=== PATIENT | male | born 1990 | race Caucasian/White ===

== ENCOUNTER 2020-12-30 15:08 | Emergency (ER) | payer OTHER, SELFPAY ==
--- NOTE | ~2020-12-30 | XR_ITS ---
EXAMINATION: XR foot RT min 3V DATE: 12/30/2020 15:28 INDICATION: Right foot injury. TECHNIQUE: 4 views of right foot were obtained. COMPARISON: None. FINDINGS: Bone alignment is normal. There is a nondisplaced extra-articular oblique fracture of third distal phalanx. There is mild osteoarthritis of first metatarsophalangeal joint. IMPRESSION: 1. Nondisplaced extra-articular oblique fracture of third distal phalanx. Reviewed, dictated and finalized at location A.
[2020-12-30 15:21] VITALS: BP 127/80; PULSE 97; RESP 16; TEMP 36.6; O2SAT 97
--- NOTE | 2020-12-30 15:35 | ED.LOWEXIN ---
HPI - Extremity Injury (Lower) General Chief Complaint: Extremity Injury, Lower Stated Complaint: injured foot Time Seen by Provider: 12/30/20 15:11 Source: patient and RN notes reviewed Limitations: no limitations History of Present Illness HPI Narrative: The patient, previously mostly healthy, presents with right foot pain. Patient states he was at work when he dropped a heavy furnishing/cabinet up on his right foot. He complains of mild to moderate pain is worse with motion, better at rest especially at the middle toes. No significant deformity, bleeding but there is some swelling. Related Data Allergies Allergy/AdvReac Type Severity Reaction Status Date / Time cefaclor Allergy Unknown Hives / Verified 08/31/17 22:40 Red Face Review of Systems Review of Systems: General/Constitutional: No weight loss,fever Eyes: N0: Redness,discharge Ears/Nose/Throat: No: Epistaxis,ear discharge Respiratory: Denies: Hemoptysis Gastrointestinal: No Vomiting, Bleeding-rectal Skin: No Lumps, eruption Neurologic: No Focal Weakness,Sz Hematologic: Denies: Petechiae/Purpura Psychiatric: No: Suicida ideationl All Other Systems: Reviewed and Negative PMFSH Comments At time of signature, agree with nursing past medical, surgical, social and family history. There is no relevant family history pertinent to the presenting complaint Exam Narrative: General Appearance: Well appearing, conjunctiva clear Mouth/Throat: Normal appearing, Normal lips,Neck: Supple Respiratory: Airway patent, No respiratory distress MS-foot: Nl strength (mostly intact, limited flexion/extension by pain), Tenderness (distal toe tips, with mild decreased ROM), Swelling distal phalanges), Other (no anterior drawer, Skin: Warm, Dry, Normal color Neurological: A&O x3, Speech clear, CN II-XII intact Psychiatric: Normal mood, Normal affect Course Course Emergency Course: Films visualized, interpreted by radiologist, agree, abnormal see report Vital Signs Vital signs: Vital Signs Temperature 98 F 12/30/20 15:21 Pulse Rate 97 12/30/20 15:21 Respiratory Rate 16 12/30/20 15:21 Blood Pressure 127/80 12/30/20 15:21 Pulse Oximetry 97 12/30/20 15:21 Temperature 98 F 12/30/20 15:21 Pulse Rate 97 12/30/20 15:21 Respiratory Rate 16 10/12/21 15:21 Blood Pressure 127/80 12/30/20 15:21 Pulse Oximetry 97 12/30/20 15:21 Discharge Plan Discharge Clinical Impression: Fracture, toe Qualifiers: Encounter type: initial encounter Toe: lesser toe Fracture type: closed Phalanx: distal Fracture alignment: nondisplaced Laterality: right Qualified Code(s): S92.534A - Nondisplaced fracture of distal phalanx of right lesser toe(s), initial encounter for closed fracture Patient Disposition: Home, Self-Care Condition: Improved Instructions: Toe Fracture (ED) Additional Instructions: Per instruction sheet: Wear stiffer, flat shoes; and/or lavonne tape toes See podiatry worsens or not improved Prescriptions: New tramadol 50 mg tablet 50 - 75 mg PO Q6H PRN (Reason: pain) Qty: 30 RF: 0 Follow-up/Referrals: Jerome,Kailee Lam APRN [Primary Care Provider] -
== END 2020-12-30 15:53 | disposition home or self-care (01) ==
PROVIDERS: Emergency Provider Emergency Medicine; PCP Nurse Practitioner Family
DX: S92.534A Nondisplaced fracture of distal phalanx of right lesser toe(s), initial encounter for closed fracture (principal); W20.8XXA Other cause of strike by thrown, projected or falling object, initial encounter; Y99.0 Civilian activity done for income or pay
CPT/HCPCS: 73630; 99203; G0463

== ENCOUNTER 2022-01-18 09:32 | Emergency (ER) | payer OTHER, SELFPAY ==
--- NOTE | 2022-01-18 09:36 | ED.URI ---
HPI - URI/Sore Throat General Chief Complaint: Upper Respiratory Infection Stated Complaint: sore throat, fatigue, cough, runny nose Time Seen by Provider: 01/18/22 10:06 Source: patient and RN notes reviewed Mode of arrival: ambulatory Limitations: no limitations History of Present Illness HPI Narrative: 31-year-old male presents concern for sore throat that started yesterday. He reports rhinorrhea, fatigue. He does not take any npya-gyh-teljoct medications for his symptoms. He denies cough, fever, chills, sweats. Reports mild body aches. MD elicited complaint: sore throat Related Data Allergies Allergy/AdvReac Type Severity Reaction Status Date / Time cefaclor Allergy Unknown Hives / Verified 08/31/17 22:40 Red Face Review of Systems Review of Systems: CONSTITUTIONAL: Denies malaise, chills, sweats, or fever. Reports fatigue EYES: Denies visual changes, redness, or discharge. ENT: Reports rhinorrhea and sore throat. Denies congestion, sinus pain, otalgia CARDIOVASCULAR: Denies chest pain, palpitations, or edema. RESPIRATORY: Denies cough. Denies dyspnea. GASTROINTESTINAL: Denies abdominal pain, nausea, vomiting, diarrhea SKIN: Denies rash or itching. MUSCULOSKELETAL: Reports myalgia. NEUROLOGIC: Denies headache. All systems reviewed & are unremarkable except as noted in HPI and below PMFSH Comments At time of signature, agree with nursing past medical, surgical, social and family history. There is no relevant family history pertinent to the presenting complaint Exam Narrative: GENERAL: Well-appearing, well-nourished, and in no acute distress. HEAD: Normocephalic EYES: PERRLA, conjunctivae clear ENT: Nares clear, clear discharge. Mucous membranes moist. TM pearly sal with sharp light reflex bilaterally; no tragal tenderness. Oropharynx not erythematous without lesions. Tonsils not enlarged and without exudate, no drooling, no hoarseness, no trismus, uvula midline. NECK: Supple. No lymphadenopathy CHEST: Clear to auscultation, breath sounds equal. No wheezing, rhonchi, rales, or stridor. No respiratory distress, speaks in full sentences. HEART: Regular rate and rhythm. No murmur heard. SKIN: Warm, dry, no rash. NEURO: Alert and oriented x3. PSYCH: Normal mood and affect Course Course Emergency Course: Patient is aware of diagnosis, understands and agrees to treatment plan. Anticipatory guidance given. Patient agrees to follow-up as directed and is aware of reasons to seek care at the emergency department. Portions of this record may have been created with voice recognition software Level of Care: Express Care Visit Vital Signs Vital signs: Reviewed. MDM - URI/Sore Throat MDM Narrative Medical decision making narrative: Differential diagnosis considered: Forte virus, strep pharyngitis, allergic rhinitis, upper respiratory tract infection, sinusitis, rhinosinusitis, nasopharyngitis. viral pharyngitis, otitis media, otitis externa, pneumonia, bronchitis, viral cough syndrome, viral syndrome, and influenza. Exam findings show no acute concerns or changes; patient is non-toxic appearing and is in no distress. Patient is appropriate for outpatient treatment and follow-up. Lab Data Attestation: I reviewed the patient's lab results. Critical Care Time Critical Care Time Critical Care Time: No Discharge Plan Discharge Clinical Impression: Upper respiratory infection Patient Disposition: Home, Self-Care Condition: Stable Instructions: Upper Respiratory Infection (ED) Additional Instructions: Your influenza tests are negative Your rapid strep swab was negative today at [facility]. A throat culture will be sent to the laboratory for further testing. If the test is positive, you will receive a phone call within 48 hours and an appropriate antibiotic will be initiated at that time. Your symptoms are likely due to a viral illness, which is not treated with antibiotics. Viral symptoms can be pr
[2022-01-18 09:38] VITALS: BP 130/93; PULSE 99; RESP 16; TEMP 36.7; O2SAT 100
== END 2022-01-18 10:14 | disposition home or self-care (01) ==
PROVIDERS: Emergency Provider Nurse Practitioner
DX: J06.9 Acute upper respiratory infection, unspecified (principal)
CPT/HCPCS: 87081; 87804; 87880; 99213; G0463

== ENCOUNTER 2022-03-03 11:29 | Emergency (ER) | payer OTHER, SELFPAY ==
--- NOTE | 2022-03-03 11:31 | ED.URI ---
HPI - URI/Sore Throat General Chief Complaint: Upper Respiratory Infection Stated Complaint: fever, bodyaches, chills,congestion Time Seen by Provider: 03/03/22 11:31 Source: patient Mode of arrival: ambulatory Limitations: no limitations History of Present Illness HPI Narrative: Mr. Pierce is a 31-year-old male patient presenting to the clinic today with complaints of fever, body aches, chills, and nasal congestion since 4:00 a.m. this morning. 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 MD elicited complaint: fever, nasal congestion and other (Body aches and chills) Related Data Home Medications Medication Instructions Recorded Confirmed diclofenac sodium 75 mg 75 mg PO DAILY 03/03/22 03/03/22 tablet,delayed release Allergies Allergy/AdvReac Type Severity Reaction Status Date / Time cefaclor Allergy Unknown Hives / Verified 03/03/22 11:39 Red Face Review of Systems Review of Systems: Pertinent positives per HPI. Patient denies any rash, headache, visual changes, dizziness, cough, shortness of breath, chest pain, palpitations, nausea, vomiting, diarrhea, constipation, abdominal pain, or any urinary issues. PMFSH Comments At the time of my signature, I reviewed and agree with the nursing past medical, surgical, social, and family history. There is no relevant family history pertinent to the patient complaint. Exam Narrative: General: Well-developed, well nourished, in no apparent distress Head: Normocephalic, atraumatic Eyes: Pupils equally round and reactive to light bilaterally, EOM intact, sclera and conjunctive clear, no discharge, lids normal Ears: TMs intact and dull, ear canals clear, no drainage, grossly hearing normal. Nose: Nares patent, clear nasal discharge, no inflammation, no sinus tenderness. Mouth: Oral pharynx without lesions or masses, good dentition, MMM. Postnasal drip Neck: Supple, trachea midline, no enlargement of anterior or posterior cervical nodes, no thyroid masses or goiter palpable. Cardio: Regular rate and rhythm, s1 and s2 normal, no murmur appreciated. Resp: Clear to auscultation bilaterally, no rhonchi, rales, wheezing or rubs Course Course Emergency Course: Portions of this record may have been created with voice recognition software. Level of Care: Express Care Visit Vital Signs Vital signs: Vital Signs Temperature 37.9 C H 03/03/22 11:33 Pulse Rate 117 H 03/03/22 11:33 Respiratory Rate 18 03/03/22 11:33 Blood Pressure 135/94 H 03/03/22 11:33 Pulse Oximetry 99 03/03/22 11:33 Oxygen Delivery Room Air 03/03/22 11:33 Temperature 37.9 C H 03/03/22 11:33 Pulse Rate 117 H 03/03/22 11:33 Respiratory Rate 18 03/03/22 11:33 Blood Pressure 135/94 H 03/03/22 11:33 Pulse Oximetry 99 03/03/22 11:33 Oxygen Delivery Room Air 03/03/22 11:33 Vital signs reviewed MDM - URI/Sore Throat MDM Narrative Medical decision making narrative: At the time of visit patient is resting comfortably on the exam table. Influenza and COVID testing were performed in the clinic. Influenza testing was negative however COVID testing was positive. Prescription for mulnipiviar was sent to pharmacy. Supportive measures were discussed with the patient he voiced understanding discharge instructions and agrees to treatment plan. Differential Diagnosis Differential diagnosis: Likely upper respiratory infection, otitis media, sinusitis, viral infection, bronchitis, influenza, pharyngitis and other (COVID) Lab Data Labs: Lab Results 03/03/22 Range/Units 11:45 POC SARS CoV-2 Ag Positive (Negative) Discharge Plan Discharge Clinical Impression: COVID-19 Patient Disposition: Home, Self-Care Condition: Stable Instructions: Antibiotic Form, COVID-19 (Coronavirus Disease 2019) (ED), How to Recover from COVID-19 at Home (ED) Additional Instructions: Take prescription medicatio
[2022-03-03 11:33] VITALS: BP 135/94; PULSE 117; RESP 18; TEMP 37.9; O2SAT 99
== END 2022-03-03 12:13 | disposition home or self-care (01) ==
PROVIDERS: Emergency Provider Nurse Practitioner Family
DX: U07.1 COVID-19 (principal)
CPT/HCPCS: 87426; 87804; 99213; C9803; G0463

== ENCOUNTER 2023-02-23 08:22 | Emergency (ER) | payer OTHER, BC, SELFPAY ==
[2023-02-23 08:36] VITALS: BP 137/80; PULSE 102; RESP 16; TEMP 36.9; O2SAT 99
--- NOTE | 2023-02-23 09:05 | ED.URI ---
HPI - URI/Sore Throat General Chief Complaint: Upper Respiratory Infection Stated Complaint: CHEST CONGESTION/FLU EXPOSURE Time Seen by Provider: 02/23/23 09:05 Source: patient, RN notes reviewed and old records reviewed Mode of arrival: ambulatory Limitations: no limitations History of Present Illness HPI Narrative: 32-year-old male presents to Express Care with complaints of cough and not feeling well since last night. Patient reports that daughter was diagnosed with flu the other day. Patient states that he has not had any fever, has some nasal drainage, cough and does have some body aches Patient reports that he has been taking Mucinex for his symptoms. Patient reports that he has not had flu shot this year. MD elicited complaint: cough, rhinorrhea, nasal congestion and other (feels achy) Onset (ago): day(s) (1) Pain scale (0-10): 4 Able to tolerate fluids by mouth: Yes Treatments prior to arrival: other ( Mucinex) Related Data Allergies Allergy/AdvReac Type Severity Reaction Status Date / Time cefaclor Allergy Unknown Hives / Verified 02/23/23 08:28 Red Face Review of Systems Review of Systems: CONSTITUTIONAL: Report malaise, no chills, sweats, or fever. EYES: Denies visual changes, redness, or discharge. ENT: Reports rhinorrhea, congestion, sinus pain, no otalgia and no sore throat. CARDIOVASCULAR: Denies chest pain, palpitations, or edema. RESPIRATORY: Reports cough.? Denies dyspnea. GASTROINTESTINAL: Denies abdominal pain, nausea, vomiting, diarrhea SKIN: Denies rash or itching. MUSCULOSKELETAL: Reports myalgia. NEUROLOGIC: Denies headache. All systems reviewed & are unremarkable except as noted in HPI and below PMFSH Social History Social History (Updated 02/23/23 @ 09:24 by Ruma Espinoza NP) Smoking status: Never smoker Alcohol intake: current Alcohol use details: rare social Substance use type: does not use Living arrangements: with family Gender identity (if verbalized by the patient): Male Comments At time of signature, agree with nursing past medical, surgical, social and family history. There is no relevant family history pertinent to the presenting complaint Exam Narrative: GENERAL: Well-appearing, well-nourished, and in no acute distress. HEAD: Normocephalic EYES: PERRLA, conjunctivae clear ENT: Nares clear, turbinates edematous and erythematous, clear discharge. Mucous membranes moist. TM pearly sal with dull light reflex bilaterally; no tragal tenderness. Oropharynx erythematous without lesions. Tonsils not enlarged and without exudate, no drooling, no hoarseness, no trismus, uvula midline. post nasal drainage. NECK: Supple. No lymphadenopathy CHEST: Clear to auscultation, breath sounds equal. No wheezing, rhonchi, rales, or stridor. No respiratory distress, speaks in full sentences.cough,SAO2 99% on room air HEART: Regular rate and rhythm. No murmur heard. SKIN: Warm, dry, no rash. NEURO: Alert and oriented x3. PSYCH: Normal mood and affect Course Course Emergency Course: Patient is aware of diagnosis, understands and agrees to treatment plan.? Anticipatory guidance given.? Patient agrees to follow-up as directed and is aware of reasons to seek care at the emergency department. Portions of this record may have been created with voice recognition software Level of Care: Express Care Visit Vital Signs Vital signs: Vital Signs Temperature 36.9 C 02/23/23 08:36 Pulse Rate 102 H 02/23/23 08:36 Respiratory Rate 16 02/23/23 08:36 Blood Pressure 137/80 02/23/23 08:36 Pulse Oximetry 99 02/23/23 08:36 Temperature 36.9 C 02/23/23 08:36 Pulse Rate 102 H 02/23/23 08:36 Respiratory Rate 16 02/23/23 08:36 Blood Pressure 137/80 02/23/23 08:36 Pulse Oximetry 99 02/23/23 08:36 Reviewed MDM - URI/Sore Throat MDM Narrative Medical decision making narrative: Differential diagnosis considered: Forte vi
== END 2023-02-23 09:20 | disposition home or self-care (01) ==
PROVIDERS: Emergency Provider Registered Nurse
DX: J06.9 Acute upper respiratory infection, unspecified (principal); Z20.822 Contact with and (suspected) exposure to COVID-19
CPT/HCPCS: 87426; 87804; 99213; C9803; G0463

== ENCOUNTER 2023-06-27 09:22 | Emergency (ER) | payer OTHER, BC, SELFPAY ==
[2023-06-27 09:44] VITALS: BP 122/92; PULSE 84; RESP 16; TEMP 36.8; O2SAT 99
--- NOTE | 2023-06-27 10:10 | ED.EAR ---
HPI - Ear Problem General Chief complaint: Ear Stated complaint: Cold Symptoms/Ear Pain Time Seen by Provider: 06/27/23 10:10 Source: patient, RN notes reviewed and old records reviewed Mode of arrival: ambulatory Limitations: no limitations History of Present Illness HPI Narrative: 32-year-old male to Express Care with complaint nonproductive bilateral ear discomfort for 2 days. Patient endorses left ear had increased pain last night. Patient has attempted to treat at home with Mucinex and NyQuil with some relief. Patient denies pertinent medical history. Patient denies fever, sore throat, nausea, sputum production, nasal congestion. patient able to control secretions. Patient able to tolerate fluids by mouth. Related Data Allergies Allergy/AdvReac Type Severity Reaction Status Date / Time cefaclor Allergy Unknown Hives / Verified 06/27/23 09:45 Red Face Review of Systems Review of Systems: All systems reviewed & are unremarkable except as noted in HPI and below Constitutional: Constitutional: Reports as per HPI, Denies fever(s) and Denies headache(s) Eyes: Eyes: Reports no additional eye complaints ENT: Reports as per HPI, Reports otalgia ( Bilateral; worse on left per patient), Denies headache(s) and Denies sore throat Cardiovascular: Cardiovascular: Reports no additional cardiovascular complaints, Denies chest pain and Denies dyspnea Respiratory: Respiratory: Reports no additional respiratory complaints, Reports cough ( dry per patient) and Denies dyspnea Musculoskeletal: Musculoskeletal: Reports no additional musculoskeletal complaints Neurologic: Reports system reviewed and no additional complaints, except as documented Psychiatric: Psychiatric: Reports no additional psychiatric complaints PMFSH Social History Social History Smoking status: Never smoker Alcohol intake: current Alcohol use details: rare social Substance use type: does not use Living arrangements: with family Gender identity (if verbalized by the patient): Male Comments At the time of my signature, I reviewed and agree with the nursing past medical, surgical, social, and family history. There is no relevant family history pertinent to the patient complaint. Exam Const: General: cooperative, healthy appearing, comfortable, no acute distress, alert and well nourished Nutritional Appearance: well nourished Orientation/consciousness: patient oriented x3 Limitations: no limitations HENMT: Head: normal to inspection Ears: external ears normal and TM abnormal bulging on the left, erythematous on the left and with fluid behind the TM on the left Face/Nose/Sinus: Normal external nose present, Normal nares present, normal facial exam, No erythema and No edema Face and sinus: normal facial exam, no erythema and no edema Mouth: Yes Normal oral and palatal mucosa present Throat: posterior oropharynx abnormal erythema and postnasal drainage Eyes: General: appearance normal, both eyes and all related structures Neck: Neck: normal visual inspection, full ROM and no meningeal signs Lymphatic: no lymphadenopathy noted and no lymphedema noted Chest: Chest palpation & inspection: normal inspection of the chest Resp: Effort & Inspection: normal respiratory effort and able to speak in complete sentences Auscultation: clear to auscultation bilaterally Cardio: Jugular venous distension: no JVD Rate: regular rate Rhythm: regular rhythm Back/Spine/Pelvis: Cervical Spine: cervical ROM normal Skin: General skin exam: normal color, no rashes or lesions noted and turgor normal Neuro: General: patient oriented x3, gait normal, moves all extremities and no meningeal signs Speech: normal speech Gait exam (Neuro): Normal gait present Extrem: General: normal to inspection, full ROM and capillary refill normal Psych: Appearance: grossly normal and well kempt Course Course Nelia
== END 2023-06-27 10:27 | disposition home or self-care (01) ==
PROVIDERS: Emergency Provider Nurse Practitioner Family
DX: H66.92 Otitis media, unspecified, left ear (principal); J06.9 Acute upper respiratory infection, unspecified
CPT/HCPCS: 99213; G0463

== ENCOUNTER 2023-10-08 08:16 | Emergency (ER) | payer OTHER, BC, SELFPAY ==
--- NOTE | ~2023-10-08 | XR_ITS ---
XR elbow RT min 3V 10/08/2023 08:42 Indication: Right elbow pain Procedure: 4 views right elbow Comparison: No prior studies for comparison. Findings: There is a nondisplaced radial neck fracture. There is moderate joint effusion. No other fr actures. No foreign bodies. Impression: 1: Nondisplaced radial neck fracture with associated joint effusion. Reviewed, dictated and finalized at location B. Impression: 1: Nondisplaced radial neck fracture with associated joint effusion.
[2023-10-08 08:23] VITALS: BP 129/87; PULSE 81; RESP 16; TEMP 36.6; O2SAT 97
--- NOTE | 2023-10-08 08:31 | ED.UPPEXIN ---
HPI - Extremity Injury (Upper) General Chief Complaint: Extremity Injury, Upper Stated Complaint: R ELBOW INJURY Source: patient, RN notes reviewed and old records reviewed Mode of arrival: ambulatory Limitations: no limitations History of Present Illness HPI narrative: patient presents with complaints of right elbow pain and swelling. He reports that he tripped and caught himself on outstretched right hand last night. He does not complain of any hand or wrist pain, but he does have swelling to the arm just proximal to the right elbow. He has difficulty straightening the affected joint. He denies landing on the affected elbow. He is recovering from a shoulder injury on the same side, goes to a chiropractor for this. He denies other injury and trauma. Sensation is intact. Full range of motion to the right shoulder, wrist, fingers. Range of motion to right elbow is limited, he is unable to fully extend. He has wrapped the affected area and taken ibuprofen, neither has helped very much Related Data Allergies Allergy/AdvReac Type Severity Reaction Status Date / Time cefaclor Allergy Unknown Hives / Verified 09/16/23 13:02 Red Face Review of Systems Review of Systems: All systems reviewed & are unremarkable except as noted in HPI and below Constitutional: Constitutional: Reports no additional constitutional complaints ENT: Reports system reviewed and no additional complaints, except as documented Cardiovascular: Cardiovascular: Reports no additional cardiovascular complaints Respiratory: Respiratory: Reports no additional respiratory complaints Gastrointestinal: Gastrointestinal: Reports no additional gastrointestinal complaints Musculoskeletal: Musculoskeletal: Reports no additional musculoskeletal complaints, Reports as per HPI, Reports arthralgias, Reports joint swelling, Denies numbness and Reports other (unable to extend R elbow) Neurologic: Reports system reviewed and no additional complaints, except as documented, Reports as per HPI, Denies Sensory deficit (Neuro), Denies tingling and Denies paresthesias [facility] Social History Social History Smoking status: Never smoker Alcohol intake: current Alcohol use details: rare social Substance use type: does not use Living arrangements: with family Gender identity (if verbalized by the patient): Male Comments At the time of my signature, I reviewed and agree with the nursing past medical, surgical, social, and family history. There is no relevant family history pertinent to the patient complaint. Exam Const: General: cooperative, no acute distress, alert and awake Orientation/consciousness: oriented to person, oriented to place and oriented to time HENMT: Head: normal to inspection Resp: Effort & Inspection: normal respiratory effort and able to speak in complete sentences Auscultation: clear to auscultation bilaterally, no crackles, no rales, no rhonchi and no wheezes Cardio: Palpation: normal PMI Rate: regular rate Rhythm: regular rhythm Heart sounds: S1 normal heart sound present and S2 normal heart sound present Back/Spine/Pelvis: Cervical Spine: cervical ROM normal Skin: General skin exam: normal color Neuro: General: oriented to person, oriented to place and oriented to time Cranial nerves: Yes CN's II-XII intact bilaterally Extrem: Right upper extremity: elbow/forearm tenderness of the olecranon, swelling of the olecranon, abnormal ROM held in an abnormal fashion in flexion and distal pulses intact and Extremity exam: right hand normal to inspection, normal capillary refill and neuromotor exam normal Left upper extremity: full ROM Psych: Appearance: grossly normal Thought process: Normal thought process present Insight: Good insight present (Psych) Judgement: Good judgement present (Psych) Course Course Level of Care: Express Care Visit Vital Signs Vital signs: Vital Signs
== END 2023-10-08 09:30 | disposition home or self-care (01) ==
PROVIDERS: Emergency Provider Nurse Practitioner Family; PCP Emergency Medicine
DX: S52.134A Nondisplaced fracture of neck of right radius, initial encounter for closed fracture (principal); W01.0XXA Fall on same level from slipping, tripping and stumbling without subsequent striking against object, initial encounter
CPT/HCPCS: 29105; 73080; 99214; A4565; G0463

== ENCOUNTER 2024-11-07 13:13 | Emergency (ER) | payer OTHER, SELFPAY ==
--- NOTE | 2024-11-07 13:15 | ED.URI ---
HPI - URI/Sore Throat General Chief Complaint: Upper Respiratory Infection Stated Complaint: FEVER Time Seen by Provider: 11/07/24 13:15 Source: patient Mode of arrival: ambulatory Limitations: no limitations History of Present Illness HPI Narrative: Robert is a 34-year-old male patient presenting to the clinic today with complaints of a fever, sore throat, nasal congestion, right maxillary sinus pain, postnasal drip, and cough x1 day. He reports temperature was high as 101. Has taken NyQuil for his symptoms. He denies any shortness of breath or chest pain MD elicited complaint: sore throat and nasal congestion Related Data Home Medications ?Medication ?Instructions ?Recorded ?Confirmed ?Last Taken ?Type No Home Medications 11/07/24 11/07/24 Unknown History Allergies Allergy/AdvReac Type Severity Reaction Status Date / Time cefaclor Allergy Unknown Hives / Verified 11/07/24 13:20 Red Face Review of Systems Review of Systems: Pertinent positives per HPI. Patient denies any rash, headache, visual changes, dizziness, shortness of breath, chest pain, palpitations, nausea, vomiting, diarrhea, constipation, abdominal pain, or any urinary issues. COUNTS INCLUDE 234 BEDS AT THE [facility] Social History Social History Smoking status: Never smoker Alcohol intake: current Alcohol use details: rare social Substance use type: does not use Living arrangements: with family Gender identity (if verbalized by the patient): Male Comments At the time of my signature, I reviewed and agree with the nursing past medical, surgical, social, and family history. There is no relevant family history pertinent to the patient complaint. Exam Narrative: General: Well-developed, well nourished, in no apparent distress Head: Normocephalic, atraumatic Eyes: Pupils equally round and reactive to light bilaterally, EOM intact, sclera and conjunctive clear, no discharge, lids normal Ears: TMs intact and clear, ear canals clear, no drainage, grossly hearing normal. Nose: Nares patent, clear nasal discharge, mild inflammation, no sinus tenderness. Mouth: Oral pharynx red without lesions or masses, good dentition, MMM. Postnasal drip Neck: Supple, trachea midline, no enlargement of anterior or posterior cervical nodes, no thyroid masses or goiter palpable. Cardio: Regular rate and rhythm, s1 and s2 normal, no murmur appreciated. Resp: Clear to auscultation bilaterally, no rhonchi, rales, wheezing or rubs Course Course Emergency Course: Portions of this record may have been created with voice recognition software. Level of Care: Express Care Visit Vital Signs Vital signs: Vital signs reviewed MDM - URI/Sore Throat MDM Narrative Medical decision making narrative: At the time of visit patient is resting comfortably on the exam table. Patient appears to be nontoxic. Complaints of a fever, sore throat, nasal congestion, right maxillary sinus pain, postnasal drip, and cough x1 day. He reports temperature was high as 101. Has taken NyQuil for his symptoms. He denies any shortness of breath or chest pain. On exam patient has red oropharynx with postnasal drip and clear nasal drainage. No sign of bacterial infection and lung sounds are clear. Vital signs are stable. Patient works at a local [employer]. Will order COVID, flu, and strep testing. Labs: COVID, influenza, and strep test were performed. All testing was negative. We will send strep for culture. Plan: I suspect patient has URI/postnasal drip/pharyngitis. Supportive measures were discussed with the patient and they voiced understanding discharge instructions and agrees to treatment plan. Return precautions reviewed Differential Diagnosis Differential diagnosis: Likely upper respiratory infection, otitis media, sinusitis, viral infection, bronchitis, influenza, pharyngitis and other Discharge Plan Discharge Clinical Impression: PND (post-nasal drip) URI (upper respiratory infection) Qualifiers: URI type: unspecified URI Qualified Code(s): J06.9 - Acute upper respiratory infection, unspecified Pharyngitis Qualifiers: Pharyngitis/tonsillitis etiology: unspecified etiology Qualified Code(s): J02.9 - Acute pharyngitis, unspecified Patient Disposition: Home Condition: Stable Instructions: Antibiotic Form, Pharyngitis (ED), Cold Symptoms (ED), Postnasal Drip (DC) Additional Instructions: COVID, influenza, and strep test were all negative in the clinic today. We will send strep for culture if this comes back positive we will contact you and place you on antibiotics at that time. May continue DayQuil/NyQuil for cold/flu symptoms-this medication has Tylenol in it Increase fluids and stay well hydrated May take Tylenol or motrin as directed on bottle for pain/fever May use Flonase 1 spray in each nare daily May take OTC antihistamines such as Zyrtec or Claritin daily as directed on bottle May apply Vicks vapor rub to chest to open sinuses Sinus rinses for congestion Cepacol spray, cough drops, throat lozenges, warm tea with honey/lemon, gargle salt water to soothe throat BRAT diet for diarrhea Clear liquids x 24 hours then advance as tolerated for nausea/vomiting Go to the ED if you develop a worsening in your condition- high fever not controlled by Tylenol or Motrin, dehydration, weakness, lethargy, shortness of breath, or chest pain. Follow up with your PCP in 3-5 days if symptoms persist. Patient Language: Albanian Prescriptions: No Action No Home Medications Follow-up/Referrals: UNKNOWN,DOCTOR [Non-Staff] Time of Disposition: 13:42 Quality NIHSS Nursing Documentation ED NIHSS nursing documentation: reviewed/agree
[2024-11-07 13:25] VITALS: BP 131/87; PULSE 111; RESP 16; TEMP 37.2; O2SAT 97
[2024-11-07 13:47] LABS: EDCOVIDSCREEN Negative (Negative); EDINFLUASCREEN Negative (Negative); EDINFLUBSCREEN Negative (Negative); EDSTREPNEGPOS1 Negative (Negative)
== END 2024-11-07 13:45 | disposition home or self-care (01) ==
PROVIDERS: Emergency Provider Nurse Practitioner Family
DX: R09.82 Postnasal drip (principal); J06.9 Acute upper respiratory infection, unspecified; J02.9 Acute pharyngitis, unspecified; Z20.822 Contact with and (suspected) exposure to COVID-19
CPT/HCPCS: 87081; 87426; 87804; 87880; 99213; G0463